=== PATIENT | male | born 1945 | race Caucasian/White ===

== ENCOUNTER → 2016-10-17 | Outpatient (CLI) | payer MEDICARE ==
[~2016-10-17] MED LIST: ASPI-496 PO; CETI10TA24 PO; OMEP20TA62 PO
[2016-10-17 09:38] LABS: HEMOGLOBIN 16.3 g/dL (13.7-18.0)
[2016-10-17 09:45] LABS: BLOOD UREA NITROGEN 17 mg/dL (7-18)
== END | disposition home or self-care (01) ==
LOC: STAR 08:27
PROVIDERS: ATTEND Otolaryngology Otolaryngology/Facial Plastic Surgery
DX: Z01.818 Encounter for other preprocedural examination (principal); C44.49 Other specified malignant neoplasm of skin of scalp and neck; R79.1 Abnormal coagulation profile
CPT/HCPCS: 36415; 71020; 80048; 85027; 85610; 85730

== ENCOUNTER → 2020-07-12 | Outpatient (CLI) | payer MEDICARE ==
[~2020-07-12] MED LIST changes: -CETI10TA24 PO; +CETI10TA76 PO; +NONE PER PT
[2020-07-12 14:13] LABS: BASOPHILS % (AUTO) 0 % (0-1); EOSINOPHILS % (AUTO) 2 % (1-7); LYMPHOCYTES % (AUTO) 27 % (22-44); MEAN CORPUSCULAR HEMOGLOBIN 30.9 pg (27.5-34.5); MEAN CORPUSCULAR HGB CONC 33.8 g/dL (33.2-36.2); MEAN PLATELET VOLUME 8.5 fL (7.4-10.4); MONOCYTES % (AUTO) 9 % (2-9); NEUTROPHILS % (AUTO) 62 % (42-75); PLATELET COUNT 211 x10^3/uL (130-400); RED BLOOD COUNT 4.81 x10^6/uL (4.38-5.82); RED CELL DISTRIBUTION WIDTH 13.4 % (9.4-14.8)
[2020-07-12 14:14] LABS: MD NO
[2020-07-12 14:21] LABS: ALANINE AMINOTRANSFERASE 16 U/L (12-78); ALBUMIN 4.1 g/dL (3.4-5.0); ANION GAP 4 mmol/L (5-15); CALCIUM 8.8 mg/dL (8.5-10.1); CHLORIDE 108 mmol/L (98-107); CREATININE 0.97 mg/dL (0.7-1.3)
[2020-07-12 14:23] LABS: ALKALINE PHOSPHATASE 54 U/L (45-117); BILIRUBIN,TOTAL 0.9 mg/dL (0.2-1.0); TOTAL PROTEIN 7.3 g/dL (6.4-8.2)
== END | disposition home or self-care (01) ==
LOC: STAR 12:55
PROVIDERS: ATTEND Orthopaedic Surgery
DX: Z01.810 Encounter for preprocedural cardiovascular examination (principal); Z01.818 Encounter for other preprocedural examination; M16.11 Unilateral primary osteoarthritis, right hip; I49.1 Atrial premature depolarization; Z20.828 Contact with and (suspected) exposure to other viral communicable diseases
CPT/HCPCS: 80053; 85025; 87081; 87635; 93005

== ENCOUNTER 2020-07-18 10:42 | Observation (INO) | payer MEDICARE ==
[~2020-07-18] VITALS: Ht 177.8 cm; Wt 80.0 kg
[~2020-07-18 10:42] MED LIST changes: +EPINEPHRINE 1 MG/ML, 1ML ONE; +KETOROLAC 60 MG/2 ML ONE; +ROPIvacaine/PF 0.2%, 20 ML ONE; +SODIUM CHLORIDE 0.9% 100 ML ONE; +SUCCINYLCHOLINE 20 MG/ML, 10ML ONE; +TRANEXAMIC ACID 100 MG/ML, 10ML ONE; +VANCOMYCIN 1,000 MG ONE
[2020-07-18 11:12] VITALS: BP 134/81
[2020-07-18] MEDS ORDERED: MIDAZOLAM 1 MG/ML, 2ML ONE (11:25)
[2020-07-18] MEDS ORDERED: FENTANYL PF 250 MCG/5ML ONE (11:25)
[2020-07-18] MEDS ORDERED: CHLORHEXIDINE 15 ML UDC MM ONE (11:30)
[2020-07-18] MEDS ORDERED: LACTATED RINGERS 1,000 ML IV SCH (11:30)
[2020-07-18] MEDS ORDERED: DEXAMETHASONE 4 MG/ML, 1ML ONE (12:27)
[2020-07-18] MEDS ORDERED: EPHEDRINE 50 MG/ML, 1ML ONE (12:27)
[2020-07-18] MEDS ORDERED: ONDANSETRON 4 MG TABLET PO PRN (12:30)
[2020-07-18] MEDS ORDERED: PROMETHAZINE 12.5 MG SUPP PR PRN (12:30)
[2020-07-18] MEDS ORDERED: MORPHINE SULFATE 4 MG/ML, 1ML IVPush PRN (12:30)
[2020-07-18] MEDS ORDERED: OXYcodone IR 5MG TABLET PO PRN (12:30)
[2020-07-18] MEDS ORDERED: DIPHENHYDRAMINE 50 MG/ML, 1ML IVPush PRN (12:30)
[2020-07-18] MEDS ORDERED: DIAZEPAM 5 MG TABLET PO PRN (12:30)
[2020-07-18] MEDS ORDERED: CEFAZOLIN PMX 1GM/50ML 50 ML IVPB SCH (12:30)
[2020-07-18] MEDS ORDERED: ONDANSETRON 2MG/ML, 2ML IVPush PRN (12:30)
[2020-07-18] MEDS ORDERED: TRANEXAMIC ACID 1,000 MG in SODIUM CHLORIDE 0.9% 100 ML IVPB ONE (12:30)
[2020-07-18] MEDS ORDERED: MEPERIDINE/PF 25MG/0.5ML IVPush PRN (13:30)
[2020-07-18] MEDS ORDERED: ACETAMINOPHEN 325 MG TABLET PO PRN (13:30)
[2020-07-18] MEDS ORDERED: HYDROmorphone 1 MG/ML, 1ML INJ IVPush PRN (13:30)
[2020-07-18] MEDS ORDERED: ALBUTEROL SULFATE 2.5 MG/3 ML NPPB PRN (13:30)
[2020-07-18] MEDS ORDERED: MIDAZOLAM 1 MG/ML, 2ML IV PRN (13:30)
[2020-07-18] MEDS ORDERED: LABETALOL 5MG/ML, 20ML IV PRN (13:30)
[2020-07-18] MEDS ORDERED: METHOCARBAMOL 1,000 MG in DEXTROSE 5% 100 ML IV PRN (13:30)
[2020-07-18] MEDS ORDERED: PROMETHAZINE 25 MG/ML, 1ML IVPush PRN (13:30)
[2020-07-18] MEDS ORDERED: NEOSTIGMINE 1 MG/ML, 10ML ONE (14:00)
[2020-07-18] MEDS ORDERED: CEFAZOLIN 1,000 MG ONE (14:00)
[2020-07-18] MEDS ORDERED: GLYCOPYRROLATE 0.2MG/1ML, 5ML ONE (14:00)
[2020-07-18] MEDS ORDERED: ONDANSETRON 2MG/ML, 2ML ONE (14:00)
[2020-07-18] MEDS ORDERED: PROPOFOL 10 MG/ML, 20ML ONE (14:00)
[2020-07-18] MEDS ORDERED: ROCURONIUM 10MG/ML,5ML ONE (14:00)
[2020-07-18] MEDS ORDERED: ACETAMINOPHEN 650 MG/20.3 ML UDC ONE (14:13)
[2020-07-18] MEDS ORDERED: OXYcodone 5 MG/5 ML ORAL.SOL UDC ONE ×2 (14:13→15:04)
[2020-07-18] MEDS ORDERED: FENTANYL PF 100 MCG/2ML ONE (14:13)
[2020-07-18] MEDS: FENTANYL PF 100 MCG/2ML IV PRN ×3 (14:16→14:44)
[2020-07-18] MEDS: OXYcodone 5 MG/5 ML ORAL.SOL UDC PO PRN ×2 (14:16→15:03)
[2020-07-18] MEDS ORDERED: LABETALOL 5MG/ML, 20ML ONE (14:41)
[2020-07-18] MEDS ORDERED: DOCUSATE 100 MG CAPSULE PO SCH (21:00)
[2020-07-19] MEDS ORDERED: ASPIRIN 81 MG TABLET EC PO SCH ×2 (06:00→18:00)
== END 2020-07-18 17:45 | disposition home or self-care (01) ==
LOC: OUT 10:42 → ORIP 12:05
PROVIDERS: ADMIT Orthopaedic Surgery; ATTEND Orthopaedic Surgery
DX: M16.11 Unilateral primary osteoarthritis, right hip (principal); Z87.891 Personal history of nicotine dependence; Z88.0 Allergy status to penicillin
CPT/HCPCS: 27130; 36415; 73501; 86850; 86900; 97161; C1713; C1776; G0378; J0171; J0330; J0690; J1100; J1885; J2250; J2405; J2704; J2710; J2795; J2800; J3010; J7120; J3370